=== PATIENT | male | born 2005 | race Caucasian/White ===

== ENCOUNTER 2024-09-29 21:26 | Emergency (ER) | payer OTHER ==
[2024-09-29] MEDS: Lidocaine 1% 10 ML MDV INJECT ONE (21:45)
== END 2024-09-29 22:10 | disposition home or self-care (01) ==
LOC: VM.ED 21:26
DX: S01.112A Laceration without foreign body of left eyelid and periocular area, initial encounter (principal); Y04.0XXA Assault by unarmed brawl or fight, initial encounter
CPT/HCPCS: 12011; 99282; 99283; J3490